=== PATIENT | male | born 1975 | race Two or more races ===

== ENCOUNTER 2018-12-28 10:31 | Day surgery (SDC) | payer BC ==
[2018-12-28] MEDS ORDERED: PROPOFOL 20 ML (11:24)
[2018-12-28] MEDS ORDERED: MIDAZOLAM 1 MG/ML 2 ML INJ (11:49)
[2018-12-28] MEDS ORDERED: FENTAnyl 50 MCG/ML VIAL (11:49)
== END 2018-12-28 13:36 | disposition home or self-care (01) ==
LOC: GIL 10:31
DX: K20.8 Other esophagitis (principal)
CPT/HCPCS: 43239; 88305; 88312; 88313